=== PATIENT | male | born 1965 | race Caucasian/White ===

== ENCOUNTER 2024-06-12 02:52 | Emergency (ER) | payer OTHER ==
[2024-06-12 02:59] VITALS: BP 132/89; PULSE 78; RESP 20; TEMP 97.9; BMI 22.1
[2024-06-12] MEDS ORDERED: ASPIRIN 81 MG CHEWABLE TABLETS ONE (04:02)
[2024-06-12] MEDS: ASPIRIN 81 MG CHEWABLE TABLETS PO ONE (04:05)
[2024-06-12 04:17] LABS: BASO % 0.6 % (0-2.0); EOS % 0.5 % (0-4.5); HEMATOCRIT 35.8 % (35.4-49); LYMPH % 15.6 % (8-40); MCH 30.1 pg (25.7-33.7); MCHC 33.6 g/dl (32.0-35.9); MEAN CELL VOLUME 89.7 fl (80-96); MEAN PLT VOLUME 7.1 fl (7.5-11.1); MONO % 13.8 % (3.8-10.2); NEUT % 69.5 % (42.8-82.8); PLATELET COUNT 180 10^3/uL (134-434); RDW 15.3 % (11.9-15.9); WHITE BLOOD COUNT 4.4 K/mm3 (4.0-10.0)
[2024-06-12 04:36] LABS: POTASSIUM 4.4 mmol/L (3.5-5.1)
[2024-06-12 04:38] LABS: ALBUMIN 3.2 g/dl (3.4-5.0); BLOOD UREA NITROGEN 22.7 mg/dL (7-18); CALCIUM 8.8 mg/dL (8.5-10.1)
[2024-06-12 04:42] LABS: CREATININE 1.5 mg/dL (0.55-1.3)
[2024-06-12 04:43] LABS: BILIRUBIN,TOTAL 0.2 mg/dL (0.2-1); TOT PROT 6.2 g/dl (6.4-8.2)
[2024-06-12 05:31] LABS: HIV INTERPRETATION NEGATIVE (NEGATIVE)
== END 2024-06-12 07:39 | disposition home or self-care (01) ==
LOC: JER 02:52
DX: R06.02 Shortness of breath (principal); R07.9 Chest pain, unspecified; Z20.822 Contact with and (suspected) exposure to COVID-19
CPT/HCPCS: 0241U-QW; 36415; 71045-TC-FY; 80053; 84484; 85025; 86803; 87389; 93005; 93010; 99285-25